=== PATIENT | female | born 1980 | race Caucasian/White ===

== ENCOUNTER 2020-07-18 13:57 | Emergency (ER) | payer OTHER, MEDICAID ==
[~2020-07-18] VITALS: Ht 162.6 cm; Wt 100.0 kg
[2020-07-18] MEDS ORDERED: KETOROLAC 30MG/ML VIAL IM ONE (14:15)
[2020-07-18] MEDS ORDERED: TETANUS AND DIPHTHERIA TOX/PF 0.5ML SYR (ADULT) IM ONE (14:30)
[2020-07-18] MEDS ORDERED: HYDROCODONE/ACETAMINOPHEN 5/325MG TABLET PO ONE (15:15)
[2020-07-18] MEDS ORDERED: ONDANSETRON HCL 4MG/2ML INJ IV ONE ×2 (15:45→18:00)
[2020-07-18] MEDS ORDERED: MORPHINE SULFATE 4 MG/ML CPJ (NOT FOR IM USE) IV ONE ×2 (15:45→18:00)
[2020-07-18] MEDS ORDERED: CLONIDINE 0.1MG TABLET PO ONE (19:00)
[2020-07-18 21:59] VITALS: BP 197/111
== END 2020-07-18 22:05 | disposition short-term general hospital (02) ==
LOC: ER 14:17 → CANBEDREQ 23:16
DX: S72.8X2A Other fracture of left femur, initial encounter for closed fracture (principal); W18.39XA Other fall on same level, initial encounter; E11.9 Type 2 diabetes mellitus without complications; I10 Essential (primary) hypertension; Z90.710 Acquired absence of both cervix and uterus; Z85.6 Personal history of leukemia; Y93.89 Activity, other specified; Y92.89 Other specified places as the place of occurrence of the external cause; Y99.8 Other external cause status
CPT/HCPCS: 73562; 73700; 82962; 90714; 96372; 96374; 96375; 96376; 99285; J1885; J2270; J2405; J7040; L1830; Z7610